=== PATIENT | male | born 1935 | race Caucasian/White ===

== ENCOUNTER 2016-03-30 11:41 | Emergency (ER) | payer MEDICARE, OTHER ==
[2016-03-30] MEDS ORDERED: NS 0.9% 1000 ML* 1,000 ML IV ONE (12:40)
[2016-03-30] MEDS ORDERED: Aspirin Low Dose CHEW TAB* 81 MG PO ONE (12:40)
[2016-03-30 12:52] LABS: Hematocrit 39 % (42-52); Hemoglobin 12.6 g/dl (14.0-18.0); Mean Corpuscular HGB Conc 32 g/dl (31-36); Mean Corpuscular Hemoglobin 29 pg (27-31); Mean Corpuscular Volume 88 fL (80-94); Mean Platelet Volume 8 um3 (7.4-10.4); Red Blood Count 4.39 10^6/ul (4.0-5.4); Red Cell Distribution Width 15 % (10.5-15); White Blood Count 5.5 10^3/ul (3.5-10.8)
[2016-03-30 13:04] LABS: BUN/Creatinine Ratio 16.2 (8-20); Potassium 4.3 mmol/L (3.5-5.0)
[2016-03-30 13:05] LABS: Calcium 9.9 mg/dL (8.6-10.3); EGFR African American 68.1 (>60); Globulin 3.2 g/dL (2-4); Total Bilirubin 0.4 mg/dL (0.2-1.0); Total Protein 7.2 g/dL (6.4-8.9); Troponin I 0.03 ng/mL (<0.04)
[2016-03-30] MEDS ORDERED: Diltiazem IV* 5 MG/ML 5 ML VIAL (for loading dose/IV Push) (25 MG) IV SLOW PU ONE ×2 (13:07→14:17)
--- NOTE | 2016-03-30 13:58 | RAD ---
HISTORY: Tachycardia COMPARISONS: July 25, 2015 VIEWS:1: Single frontal portable view of the chest at 1:23 PM FINDINGS: LINES AND TUBES: None. CARDIOMEDIASTINAL SILHOUETTE: The cardiomediastinal silhouette is normal for portable technique. PLEURA: The costophrenic angles are sharp. No pleural abnormalities are noted. LUNG PARENCHYMA: The lungs are clear. ABDOMEN: The upper abdomen is clear. There is no subphrenic gas. BONES AND SOFT TISSUES: No bone or soft tissue abnormalities are noted. IMPRESSION: NO ACTIVE CARDIOPULMONARY DISEASE.
[2016-03-30] MEDS ORDERED: Diltiazem DRIP* 100 MG/100 ML ADDV.BAG IVPB ONE (14:12)
[2016-03-30] MEDS ORDERED: Diltiazem TAB* 60 MG PO ONE (14:17)
[2016-03-30] MEDS ORDERED: Metoprolol Tartrate TAB* 25 MG PO ONE (19:06)
[2016-03-30 19:39] VITALS: BP 122/62
--- NOTE | 2016-03-31 16:26 | ED ---
Ginna Moralez SooYoung, scribed for Jarrell Allen MD on 03/30/16 at 1304 . Palpitations / Dysrhythmia - HPI Summary HPI Summary: A 81 y/o M presents to ED by car with c/o rapid heart rate onset yesterday. Pt saw his PCP this AM and noted his tachycardia and recommend he go to the ED. Associated sx: diarrhea, SOB. Negative sx: fever, chills, mayalgia, CP, abd pain. Pert PMHx: HTN, HDL, DM, afib. He states he's been monitoring his sugars regularly, this AM it was 135. Pt did not take his medications today. Pt was last admitted to hospital for stomach ulcers. - History of Current Complaint Chief Complaint: EDDysrhythmPalp Time Seen by Provider: 03/30/16 12:39 Hx Obtained From: Patient, Medical Records Onset/Duration: Still Present Severity Currently: Moderate Character: Fast Associated Signs & Symptoms: Shortness of Breath - Allergy/Home Medications Allergies/Adverse Reactions: Allergies Allergy/AdvReac Type Severity Reaction Status Date / Time No Known Allergies Allergy Verified 07/25/15 18:21 Home Medications: Home Medications Omeprazole CAP* [Prilosec CAP* 20 MG] 40 mg PO DAILY 03/30/16 [History Confirmed 03/30/16] PMH/Surg Hx/FS Hx/Imm Hx Previously Healthy: No Endocrine/Hematology History: Reports: Hx Diabetes Cardiovascular History: Reports: Hx Hypercholesterolemia, Hx Hypertension Musculoskeletal History: Reports: Hx Arthritis Sensory History: Reports: Hx Contacts or Glasses Opthamlomology History: Reports: Hx Contacts or Glasses - Cancer History Cancer Type, Location and Year: COLON CA - Surgical History Surgery Procedure, Year, and Place: COLON RESECTION WITH COLOSTOMY REVERSAL Infectious Disease History: No Infectious Disease History: Denies: Traveled Outside the [place] in Last 30 Days - Family History Known Family History: Positive: Cardiac Disease - Social History Occupation: Retired Lives: With Family Alcohol Use: None Substance Use Type: Reports: None Smoking Status (MU): Never Smoked Tobacco Review of Systems Negative: Fever, Chills Negative: Erythema Negative: Sore Throat Positive: Palpitations - tachy. Negative: Chest Pain Positive: Shortness Of Breath. Negative: Cough Positive: Diarrhea. Negative: Abdominal Pain, Vomiting, Nausea Negative: dysuria, hematuria Negative: Myalgia, Edema Negative: Rash Neurological: Other - neg: dizziness All Other Systems Reviewed And Are Negative: Yes Physical Exam - Summary Physical Exam Summary: Constitutional: Well-developed, Well-nourished, Alert. (-) Distressed Skin: Warm, Dry HENT: Normocephalic; Atraumatic Eyes: Conjunctiva normal Neck: Musculoskeletal ROM normal neck. (-) JVD, (-) Stridor, (-) Tracheal deviation Cardio: Heart sounds normal; Intact distal pulses; The pedal pulses are 2+ and symmetric. Radial pulses are 2+ and symmetric. (-) Murmur, IRREGULARLY IRREGULAR TACHYCARDIA; Pulmonary/Chest wall: Effort normal. (-) Respiratory distress, (-) Wheezes, (-) Rales Abd: Soft, (-) Tenderness, (-) Distension, (-) Guarding, (-) Rebound Musculoskeletal: (-) Edema Lymph: (-) Cervical adenopathy Neuro: Alert, Oriented x3 Psych: Mood and affect Normal Triage Information Reviewed: Yes Vital Signs On Initial Exam: Initial Vitals Temp Pulse Resp BP Pulse Ox 96 F 178 24 119/76 92 03/30/16 11:42 03/30/16 11:42 03/30/16 11:42 03/30/16 11:42 03/30/16 11:42 Vital Signs Reviewed: Yes Diagnostics - Vital Signs Vital Signs Temp Pulse Resp BP Pulse Ox 03/30/16 11:42 96 F 178 24 119/76 92 - Laboratory Lab Results: Lab Results 03/30/16 Range/Units 12:00 WBC 5.5 (3.5-10.8) 10^3/ul RBC 4.39 (4.0-5.4) 10^6/ul Hgb 12.6 L (14.0-18.0) g/dl Hct 39 L (42-52) % MCV 88 (80-94) fL MCH 29 (27-31) pg MCHC 32 (31-36) g/dl RDW 15 (10.5-15) % Plt Count 372 (150-450) 10^3/ul MPV 8 (7.4-10.4) um3 Neut % (Auto) 64.0 (38-83) % Lymph % (Auto) 28.4 (25-47) % Brule % (Auto) 5.9 (1-9) % Eos % (Auto) 0.9 (0-6) % Baso % (Auto) 0.8 (0-2) % Absolute Neuts (auto) 3.5 (1.5-7.7) 10^3/ul Absolute Lymphs (auto) 1.6 (1.0-4.8) 10^3/ul Absolute Monos (auto) 0.3 (0-0.8) 10^3/ul Absolute Eos (auto) 0 (0-0.6) 10^3/ul Absolute Basos (auto) 0 (0-0.2) 10^3/ul Absolute Nucleated RBC 0.01 10^3/ul Nucleated RBC % 0.1 Result Diagrams: 03/30/16 12:00 03/30/16 12:00 Lab Statement: Any lab studies that have been ordered have been reviewed, and results considered in the medical decision making process. - Radiology CXR Xray Interpretation: No Acute Changes - IMPRESSION: No active cardio/pulmonary dz Radiology Interpretation Completed By: Radiologist - EKG 1 Cardiac Rate: Tachycardia - 137 bpm EKG Rhythm: Atrial Fibrillation EKG Interpretation: no STEMI Re-Evaluation - Re-Evaluation 1 Re-Evaluation Time: 14:21 Change: Improved Comment: Discussing lab/CXR results with pt. 2 Re-Evaluation Time: 18:10 Change: Improved Comment: Pt is feeling well and eating. Waiting on 2nd trop read. Course/Dx - Course Course Of Treatment: MDM: A 81 y/o M presents with rapid heart rate, sent from his PCP to ED. Pt has HTN, high cholesterol, DM. Associated sx inclue SOB and diarrhea. Negative for fever, CP, abd pain. CXR shows no active cardiopulmonary dz. EKG shows a-fib, tachycardia 137 bpm. Trop at 1200 is 0.03. Trop at 1730 is 0.03. Pt is eating and feeling better. D/C pt to follow up with Dr. Marcus, cardiology. Pt voiced understanding. - Diagnoses Provider Diagnoses: Atrial fibrillation with RVR - Physician Notifications Discussed Care Of Patient With: 1430: Dr. Tran, hospitalist. 1730: Dr Tran , hospitalist Time Discussed With Above Provider: 14:30 - Critical Care Time Critical Care Time: 30-74 min - 45 mins Discharge - Discharge Plan Condition: Stable Disposition: HOME Prescriptions: Metoprolol Tartrate TAB* [Lopressor TAB*] 12.5 mg PO BID #60 tab Patient Education Materials: Metoprolol (By mouth), Atrial Fibrillation (ED) Referrals: Yunior Prince MD [Primary Care Provider] - Yousif Marcus DO [Medical Doctor] - 2 Days Additional Instructions: Follow up with Dr. Marcus in the next 2-3 days. Return to the emergency department for changing or worsening symptoms. The documentation as recorded by the Ginna myers SooYoung accurately reflects the service I personally performed and the decisions made by , Jarrell Allen MD.
== END 2016-03-30 19:40 | disposition home or self-care (01) ==
LOC: ED 11:41
DX: I48.91 Unspecified atrial fibrillation (principal); R06.02 Shortness of breath; R00.2 Palpitations; R19.7 Diarrhea, unspecified
CPT/HCPCS: 36415; 71010; 80053; 83605; 84484; 85025; 87040; 93005; 96361; 96374; 96375; 99285; A9270-GY

== ENCOUNTER 2017-10-13 18:58 | Emergency (ER) | payer MEDICARE, OTHER ==
--- NOTE | 2017-10-13 20:26 | ED ---
Dizziness - HPI Summary HPI Summary: 82 y/o male presents to the ED c/o immediate onset R hip pain and swelling s/p fall while walking with a walker hours [employer] today. Pt fell onto her R side onto carpeted floor. No LOC. 6 days ago pt also developed bilateral hip pain radiating down the L leg, rated "25/10 in severity". Since then pain resolved slightly. Pt took a muscle relaxer earlier today and developed dizziness today. - History Of Current Complaint Chief Complaint: EDDizziness Stated Complaint: GENERAL ILL Hx Obtained From: Patient Character: Dizzy - due to medication Alleviating Factor(s): Nothing Associated Signs And Symptoms: Positive: Other: - bilateral hip pain radiating down L leg - Allergies/Home Medications Allergies/Adverse Reactions: Allergies Allergy/AdvReac Type Severity Reaction Status Date / Time No Known Allergies Allergy Verified 07/25/15 18:21 PMH/Surg Hx/FS Hx/Imm Hx Previously Healthy: No Endocrine/Hematology History: Reports: Hx Diabetes Cardiovascular History: Reports: Hx Hypercholesterolemia, Hx Hypertension Musculoskeletal History: Reports: Hx Arthritis Sensory History: Reports: Hx Contacts or Glasses Opthamlomology History: Reports: Hx Contacts or Glasses - Cancer History Cancer Type, Location and Year: COLON CA - Surgical History Surgery Procedure, Year, and Place: COLON RESECTION WITH COLOSTOMY REVERSAL Infectious Disease History: No Infectious Disease History: Denies: Traveled Outside the [place] in Last 30 Days - Family History Known Family History: Positive: Cardiac Disease - Social History Alcohol Use: None Substance Use Type: Reports: None Smoking Status (MU): Never Smoked Tobacco Review of Systems Constitutional: Negative Eyes: Negative ENT: Negative Cardiovascular: Negative Respiratory: Negative Gastrointestinal: Negative Genitourinary: Negative Musculoskeletal: Other - bilateral hip pain radiating down L leg Skin: Negative Neurological: Other - dizziness Psychological: Normal All Other Systems Reviewed And Are Negative: Yes Physical Exam - Summary Physical Exam Summary: Appearance: Well-appearing, Well-nourished Skin: Warm Eyes: Normal ENT: Normal Neck: Supple, nontender Respiratory: Clear to auscultation Cardiovascular: Regular rate, regular rhythm. Normal S1, S2. Abdomen: Soft, nontender Musculoskeletal: Normal, Strength/ROM Intact Neurological: Normal, A&Ox3 Psychiatric: Normal General: No acute distress area lesser trochanter lower hip 3x5 cm swelling Triage Information Reviewed: Yes Vital Signs On Initial Exam: Initial Vitals Pulse Resp BP Pulse Ox 76 10 147/93 96 10/13/17 19:49 10/13/17 19:49 10/13/17 19:49 10/13/17 19:49 Vital Signs Reviewed: Yes Diagnostics - Vital Signs Vital Signs Temp Pulse Resp BP Pulse Ox 10/13/17 19:51 96.8 F 78 23 147/63 97 10/13/17 19:49 76 10 147/93 96 - Laboratory Lab Statement: Any lab studies that have been ordered have been reviewed, and results considered in the medical decision making process. Discharge - Discharge Plan Referrals: Yunior Prince MD [Primary Care Provider] -
--- NOTE | 2017-10-13 20:34 | ED ---
Dizziness - HPI Summary HPI Summary: 82 y/o male presents to the ED c/o near syncopal episode earlier today. Episode described as sudden onset, severe lightheadedness and unsteadiness. Episode onset after standing up suddenly. Associated sx: general fatigue and weakness starting this morning. 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 Associated sx: nausea, episode of vomiting s/ p near syncopal episode, diarrhea. No history of vertigo. Normally pt walks without assistance. - History Of Current Complaint Chief Complaint: EDDizziness Stated Complaint: GENERAL ILL Hx Obtained From: Patient Onset/Duration: Suddenly Timing: Frequency Of Episodes - 1 Character: Lightheaded Aggravating Factor(s): Position Change Alleviating Factor(s): Nothing Associated Signs And Symptoms: Positive: Nausea, Vomiting, Diarrhea - Allergies/Home Medications Allergies/Adverse Reactions: Allergies Allergy/AdvReac Type Severity Reaction Status Date / Time No Known Allergies Allergy Verified 07/25/15 18:21 Home Medications: Home Medications Acetaminophen [Acetaminophen Extra Strength] 1,000 mg PO BID PRN 10/13/17 [ History Confirmed 10/13/17] Bicalutamide (NF) [Casodex (NF)] 50 mg PO DAILY 10/13/17 [History Confirmed ] Megestrol TAB* [Megace TAB*] 20 mg PO DAILY 10/13/17 [History Confirmed 10/13/17 ] Metoprolol Tartrate TAB* [Lopressor TAB*] 25 mg PO BID 10/13/17 [History Confirmed 10/13/17] Saxagliptin HCl (Nf) [Onglyza (NF)] 5 mg PO DAILY 10/13/17 [History Confirmed ] PMH/Surg Hx/FS Hx/Imm Hx Previously Healthy: No Endocrine/Hematology History: Reports: Hx Diabetes Cardiovascular History: Reports: Hx Hypercholesterolemia, Hx Hypertension Musculoskeletal History: Reports: Hx Arthritis Sensory History: Reports: Hx Contacts or Glasses Opthamlomology History: Reports: Hx Contacts or Glasses - Cancer History Cancer Type, Location and Year: COLON CA - Surgical History Surgery Procedure, Year, and Place: COLON RESECTION WITH COLOSTOMY REVERSAL Infectious Disease History: No Infectious Disease History: Denies: Traveled Outside the [place] in Last 30 Days - Family History Known Family History: Positive: Cardiac Disease - Social History Alcohol Use: None Substance Use Type: Reports: None Smoking Status (MU): Never Smoked Tobacco Review of Systems Constitutional: Negative Eyes: Negative ENT: Negative Cardiovascular: Negative Respiratory: Negative Positive: Vomiting, Diarrhea, Nausea Genitourinary: Negative Musculoskeletal: Negative Skin: Negative Neurological: Other - lightheadedness Positive: Syncope Psychological: Normal All Other Systems Reviewed And Are Negative: Yes Physical Exam - Summary Physical Exam Summary: Appearance: Well-appearing, Well-nourished Skin: Warm Eyes: There is some horizontal nystagmus. ENT: Normal Neck: Supple, nontender Respiratory: Clear to auscultation Cardiovascular: Regular rate, regular rhythm. Normal S1, S2. Abdomen: Soft, nontender Musculoskeletal: Normal, Strength/ROM Intact Neurological: Normal, A&Ox3 Psychiatric: Normal General: No acute distress Triage Information Reviewed: Yes Vital Signs On Initial Exam: Initial Vitals Pulse Resp BP Pulse Ox 76 10 147/93 96 10/13/17 19:49 10/13/17 19:49 10/13/17 19:49 10/13/17 19:49 Vital Signs Reviewed: Yes Diagnostics - Vital Signs Vital Signs Temp Pulse Resp BP Pulse Ox 10/13/17 20:19 79 18 146/83 96 10/13/17 20:00 74 17 97 10/13/17 19:51 96.8 F 78 23 147/63 97 10/13/17 19:49 76 10 147/93 96 - Laboratory Result Diagrams: 10/13/17 20:57 10/13/17 20:57 Lab Statement: Any lab studies that have been ordered have been reviewed, and results considered in the medical decision making process. - Radiology CXR Xray Interpretation: No Acute Changes - NO ACUTE PULMONARY DISEASE Radiology Interpretation Completed By: ED Physician - Additional Comments Diagnostic Additional Comments: EKG - 21:02 - SR @ [address] T changes. No T wave inversions. Re-Evaluation - Re-Evaluation 1 Re-Evaluation Time: 22:15 Comment: Discuss test results and findings, plan of care, and ddx Dizzy Course/Dx - Course Course Of Treatment: UA Neg, labs and EKG WNL. It is possible with acute nausea and vomiting associated with sudden dizziness while getting up from squatting position, it can be benign positional vertigo vs delay in orthostatic compensation due to DM and, heat, and medications including lopressor and CCA ( pt is on Metorprolol and Cardizem). Pt to follow up with PCP for proper vertigo testing if dizziness/lightheadedness persists - Diagnoses Provider Diagnoses: Dizziness, Mild dehydration Discharge - Sign-Out/Discharge Documenting (check all that apply): Patient Departure - Discharge Plan Condition: Stable Disposition: HOME Patient Education Materials: Dehydration (ED), Dizziness (ED) Referrals: Yunior Prince MD [Primary Care Provider] - 4 Days (PLEASE F/U IN 3-5 DAYS) Additional Instructions: RETURN TO THE ED FOR WORSENING SYMPTOMS - Billing Disposition and Condition Condition: STABLE Disposition: Home
[2017-10-13 21:08] LABS: ABS Basophils 0.1 10^3/ul (0-0.2); ABS Eosinophils 0 10^3/ul (0-0.6); ABS Lymphocytes 1.4 10^3/ul (1.0-4.8); ABS Monocytes 0.8 10^3/ul (0-0.8); ABS Neutrophils 6.4 10^3/ul (1.5-7.7); ABS Nucleated RBC 0 10^3/ul; Eosinophil % 0.4 % (0-6); Hematocrit 35 % (42-52); Hemoglobin 11.8 g/dl (14.0-18.0); Lymphocyte % 16.4 % (25-47); Mean Corpuscular HGB Conc 33 g/dl (31-36); Mean Corpuscular Hemoglobin 29 pg (27-31); Mean Corpuscular Volume 86 fL (80-94); Mean Platelet Volume 8.2 um3 (7.4-10.4); Nucleated Red Blood Cells % 0; Platelet Count 269 10^3/ul (150-450); Red Blood Count 4.09 10^6/ul (4.00-5.40); Red Cell Distribution Width 15 % (10.5-15); White Blood Count 8.7 10^3/ul (3.5-10.8)
[2017-10-13] MEDS ORDERED: Ondansetron INJ* 2 MG/ML VIAL IV ONE (21:51)
[2017-10-13 22:12] LABS: Urine Appearance Clear; Urine Blood Negative (Negative); Urine Color Yellow; Urine Ketones Negative (Negative); Urine Protein Negative (Negative); Urine Urobilinogen Negative (Negative)
[2017-10-13] MEDS ORDERED: NS 0.9% 500 ML* 500 ML IV SCH (23:00)
[2017-10-14 00:35] VITALS: BP 135/74
--- NOTE | 2017-10-14 07:43 | RAD ---
HISTORY: presyncope COMPARISONS: March 30, 2016 VIEWS: 2: Frontal and lateral views of the chest. FINDINGS: CARDIOMEDIASTINAL SILHOUETTE: The cardiomediastinal silhouette is normal. ERI: The eri are normal. PLEURA: The costophrenic angles are sharp. No pleural abnormalities are noted. LUNG PARENCHYMA: There is hyperinflation with flattening of the diaphragm and expansion of the AP diameter of the chest. ABDOMEN: The upper abdomen is clear. There is no subphrenic gas. BONES AND SOFT TISSUES: No bone or soft tissue abnormalities are noted. OTHER: None. IMPRESSION: HYPERINFLATION. NO ACTIVE CARDIOPULMONARY DISEASE. R1
== END 2017-10-14 00:37 | disposition home or self-care (01) ==
LOC: ED 18:58
DX: E86.0 Dehydration (principal); R42 Dizziness and giddiness; R53.83 Other fatigue; R53.1 Weakness; R11.2 Nausea with vomiting, unspecified; R19.7 Diarrhea, unspecified; E11.9 Type 2 diabetes mellitus without complications; Z79.84 Long term (current) use of oral hypoglycemic drugs; Z85.038 Personal history of other malignant neoplasm of large intestine; Z82.49 Family history of ischemic heart disease and other diseases of the circulatory system
CPT/HCPCS: 36415; 71046; 80053; 81003; 83605; 83735; 84443; 84484; 85025; 93005; 96374; 99284; J2405